=== PATIENT | male | born 1945 | race Caucasian/White ===

== ENCOUNTER → 2017-10-01 | Outpatient (CLI) | payer MEDICARE, OTHER | LOC: RAD 12:21 | PROVIDERS: ATTEND Nurse Practitioner Family | DX: I63.50 Cerebral infarction due to unspecified occlusion or stenosis of unspecified cerebral artery (principal); R90.82 White matter disease, unspecified; I60.9 Nontraumatic subarachnoid hemorrhage, unspecified | CPT/HCPCS: 70551 ==

== ENCOUNTER 2017-10-10 10:09 | Day surgery (SDC) | payer MEDICARE, OTHER ==
[2017-10-10] MEDS ORDERED: PROPOFOL 10 MG/ML, 20ML ONE (10:40)
[2017-10-10] MEDS ORDERED: SODIUM CHLORIDE 0.9% 1,000 ML IV ONE (11:00)
[2017-10-10] MEDS ORDERED: ATOR40TA PO (11:02)
[2017-10-10] MEDS ORDERED: ASPI-650 PO (11:02)
[2017-10-10] MEDS ORDERED: METO50TA82 PO (11:02)
[2017-10-10] MEDS ORDERED: PLEASE ENTER HEIGHT AND WEIGHT MC SCH (12:00)
== END 2017-10-10 13:05 ==
LOC: CACL 10:09
PROVIDERS: ATTEND Internal Medicine Cardiovascular Disease
DX: I48.0 Paroxysmal atrial fibrillation (principal); I34.0 Nonrheumatic mitral (valve) insufficiency; I35.1 Nonrheumatic aortic (valve) insufficiency; I36.1 Nonrheumatic tricuspid (valve) insufficiency; I37.1 Nonrheumatic pulmonary valve insufficiency; Z79.82 Long term (current) use of aspirin; Z88.0 Allergy status to penicillin
CPT/HCPCS: 93312; 93321; 93325; J2704

== ENCOUNTER 2020-08-02 08:35 | Outpatient (CLI) | payer MEDICARE, OTHER ==
[~2020-08-02 08:35] MED LIST: ASPI-1026 PO; ATOR40TA PO; METO50TA82 PO; REGADENOSON 0.4 MG/5 ML SYRINGE ONE
== END 2020-08-02 23:59 | disposition home or self-care (01) ==
LOC: CFH 08:35
PROVIDERS: ATTEND Internal Medicine Cardiovascular Disease
DX: I48.0 Paroxysmal atrial fibrillation (principal)
CPT/HCPCS: 78452; 93017; A9502; J2785